=== PATIENT | female | born 1975 | race Caucasian/White ===

== ENCOUNTER 2020-06-16 18:21 | Emergency (ER) | payer OTHER, MEDICARE, SELFPAY ==
[2020-06-16 18:38] VITALS: BP 144/74; PULSE 92; RESP 16; TEMP 36.6; O2SAT 97
--- NOTE | 2020-06-16 18:49 | ED.SKABFB ---
HPI - Skin/Abscess/Foreign Bdy General Chief complaint: Skin/Abscess/Foreign Body Stated complaint: Abscess Time Seen by Provider: 06/16/20 18:40 Source: patient and RN notes reviewed Mode of arrival: ambulatory Limitations: no limitations History of Present Illness HPI narrative: 44 year old female who presents to [facility] care with complaints of having abscess to left upper groin which started today wanting area opened and drained. Patient has 0.5cm firm area to left upper groin which has small pustule in center which is minute in size, Patient states that she has been putting ice to her groin area for pain and she has been squeezing area with no drainage from area. 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 MD complaint: abscess/boil Onset (ago): day(s) (1) Location: genitals (left groin) Quality: aching Pain Consistency: constant Relieving factors: cold therapy Exacerbating factors: movement Context: none Associated symptoms: denies other symptoms Treatments prior to arrival: none and other (squeezed area) Related Data Home Medications Medication Instructions Recorded Confirmed amitriptyline 100 mg PO HS 06/16/20 06/16/20 aspirin 81 mg PO DAILY 06/16/20 06/16/20 atorvastatin 20 mg PO DAILY 06/16/20 06/16/20 calcium citrate-vitamin D3 1 tablet PO DAILY 06/16/20 06/16/20 [Calcium Citrate + D] chlordiazepoxide HCl 25 mg PO TID 06/16/20 06/16/20 cholecalciferol (vitamin D3) 1,250 mcg PO WEEKLY 06/16/20 06/16/20 diphenoxylate-atropine 1 tablet PO TID 06/16/20 06/16/20 ergocalciferol (vitamin D2) 1,250 mcg PO WEEKLY 06/16/20 06/16/20 [Vitamin D2] folic acid 3 mg PO DAILY 06/16/20 06/16/20 furosemide 40 mg PO DAILY 06/16/20 06/16/20 leflunomide [Arava] 10 mg PO DAILY 06/16/20 06/16/20 levothyroxine 125 mcg PO DAILY 06/16/20 06/16/20 [id number] [Creon] 2 cap PO QID 06/16/20 06/16/20 mecobalamin (vitamin B12) 5,000 mcg PO DAILY 06/16/20 06/16/20 methotrexate sodium (PF) 25 mg SUBCUT WEEKLY 06/16/20 06/16/20 metoclopramide HCl 10 mg PO Q8H 06/16/20 06/16/20 metoprolol tartrate 12.5 mg PO TID 06/16/20 06/16/20 midodrine 2.5 mg PO TID 06/16/20 06/16/20 ondansetron HCl [Zofran] 4 mg PO Q6H PRN 06/16/20 06/16/20 pantoprazole 40 mg PO BID 06/16/20 06/16/20 potassium chloride 20 meq PO DAILY 06/16/20 06/16/20 rituximab [Rituxan] 1,000 mg IV .Q4 MONTHS 06/16/20 06/16/20 subcutaneous insulin pump 06/16/20 06/16/20 venlafaxine 75 mg PO HS 06/16/20 06/16/20 Allergies Allergy/AdvReac Type Severity Reaction Status Date / Time levetiracetam [From [facility]] Allergy Intermediate Rash Verified 06/16/20 19:04 lisinopril Allergy Intermediate Swelling Verified 06/16/20 19:04 of Lip/Tongue/Throat Penicillins Allergy Intermediate Unknown Verified 06/16/20 18:59 Review of Systems Review of Systems: Narrative: CONSTITUTIONAL: Denies fever, chills, or sweats. EYES: Denies visual changes, redness, or discharge, has diabetic retinopathy and glaucoma does wear glasses. ENT: Denies rhinorrhea, congestion, sore throat, or otalgia. CARDIOVASCULAR: Denies chest pain, palpitations, or edema. RESPIRATORY: Denies cough or dyspnea. GASTROINTESTINAL: Denies abdominal pain,intermittent stated nausea, vomiting, or diarrhea since gastric bypass surgery will be having scope soon to address these issues. GENITOURINARY: Denies dysuria or hematuria. SKIN: Denies rash or itching, has 0.5cm firm lesion to her left groin. minimal redness to area with small minute pustule noted to center of area, no acute warmth or induration of tissue. MUSCULOSKELETAL: Denies back pain, joint pain, or myalgia. NEUROLOGIC: Denies headache, numbness, or weakness. PSYCHIATRIC:History of anxiety or depression. All systems reviewed & are unremarkable except as noted in HPI and below PMFSH Past Medical History Medical History (Updated 06/17/20 @ 00:00 by Background Daemon) Asthma Diabetes, type I Diabetic neuropathy Fibromyalgia Gastr
== END 2020-06-16 19:16 | disposition home or self-care (01) ==
PROVIDERS: Emergency Provider Registered Nurse
DX: L02.214 Cutaneous abscess of groin (principal); J45.909 Unspecified asthma, uncomplicated; E10.42 Type 1 diabetes mellitus with diabetic polyneuropathy; M79.7 Fibromyalgia; E10.43 Type 1 diabetes mellitus with diabetic autonomic (poly)neuropathy; K31.84 Gastroparesis; E10.39 Type 1 diabetes mellitus with other diabetic ophthalmic complication; H40.9 Unspecified glaucoma; H42 Glaucoma in diseases classified elsewhere; M06.9 Rheumatoid arthritis, unspecified; Z98.84 Bariatric surgery status; Z96.41 Presence of insulin pump (external) (internal)
CPT/HCPCS: 10160; 99203; G0463